=== PATIENT | male | born 1950 | race Caucasian/White ===

== ENCOUNTER 2017-02-24 23:13 | Emergency (ER) | payer OTHER ==
[2017-02-24 23:20] VITALS: RESP 16
[2017-02-24] MEDS ORDERED: HYDROCODONE/APAP 5/325 TAB PO ONE (23:53)
--- NOTE | 2017-02-25 00:12 | EDPHY ---
H & P Time Seen by Provider: 02/24/17 23:52 HPI/ROS: CHIEF COMPLAINT: Right knee pain HISTORY OF PRESENT ILLNESS: 66-year-old male complaining of acute right posterior knee pain which started this evening when he was stepping over his dog on the stairs, rotated and felt immediate pain in the posterior aspect of his right knee. He is able to bear partial weight only albeit with pain. No direct trauma or fall. No proximal pain or injury. PHYSICAL EXAM (Prior to examination, patient consented to physical exam, hands were washed and my usual and customary physical exam procedures followed) 1) GENERAL: Well-developed, well-nourished, alert and oriented. Appears to be in no acute distress. 2) HEAD: Normocephalic 3) HEENT: Pupils equal, round, reactive to light bilaterally. 4) LUNGS: Breathing comfortably. 5) MUSCULOSKELETAL: Exam of the right knee shows normal coloration, normal temperature. He is keeping the knee extended approximately 120 degrees. Extension and flexion beyond this elicits pain in the posterior aspect of the knee. . Compartments are soft. 6) SKIN: Intact normal coloration 7) VASCULAR: DP,PT pulses and cap refill present and brisk distally DIFFERENTIAL DIAGNOSIS: in no particular order including but not limited to fracture, sprain, compartment syndrome, septic arthritis, DVT Procedure: Crutches indications for crutch use discussed with patient. Patient fitted for crutches by ER staff. Observed ambulating with crutches. I think the patient has the capacity to safely use crutches. Usual and customary crutch walking precautions provided Procedure: Splint A knee immobilizer splint was applied by ER is technician. After application of the splint I returned and re-examined the patient. The splint was adequately immobilizing the joint and distal to the splint the patient's circulation and sensation were intact. Patient shows no signs of compartment syndrome. Was given orthopedic precautions. MEDICAL DECISION MAKING Serial evaluations performed on patient. I discussed the limitations of x-ray in diagnosis of knee pain and injury. At this time I do not think that emergent MRI is currently indicated. However, I have recommended follow-up with Orthopedic surgery and provided this referral information. Informed the patient that outpatient MRI may be indicated. Doubt septic arthritis. Doubt compartment syndrome. Doubt DVT. Care of patient under supervision of secondary supervising physician Dr Grewal. Smoking Status: Never smoked Constitutional: Initial Vital Signs Temperature (C) 36.6 C 02/24/17 23:16 Heart Rate 65 02/24/17 23:16 Respiratory Rate 16 02/24/17 23:16 Blood Pressure 150/89 H 02/24/17 23:16 O2 Sat (%) 94 02/24/17 23:16 O2 Delivery Mode Room Air Allergies/Adverse Reactions: No Known Allergies Allergy (Unverified 02/24/17 23:20) Home Medications: Medication Instructions Recorded NK [No Known Home Meds] 02/24/17 MDM/Departure - MDM Medications Given: Discontinued Medications Hydrocodone Bitart/Acetaminophen ([place] 5/325) 1 tab PO EDNOW ONE Stop: 02/24/17 23:54 Last Admin: 02/25/17 00:05 Dose: 1 tab - Depart Disposition: Home, Routine, Self-Care Clinical Impression: Right knee pain Qualifiers: Chronicity: acute Qualified Code(s): M25.561 - Pain in right knee Condition: Good Instructions: Knee Sprain (ED), Hydrocodone/Acetaminophen (By mouth) Additional Instructions: Return to the ER immediately if you experience discoloration, have worsening pain, numbness, tingling, or any other symptoms that concern you. If you received x-rays in the emergency department today, be advised, that ligamentous , tendon, muscular, and other non-bony injury cannot be fully ruled out. Try to keep your affected extremity elevated above the level of your chest, and keep cold packs on the affected area, for the next 48 hours. Referrals: Tariq Weaver MD [Medical Doctor] - 1-2 days without fail
[2017-02-25] MEDS ORDERED: HYDROCOD/APAP 5/325 PREPACK#6 BTL TAKEHOME ONE (00:25)
[2017-02-25 00:42] VITALS: BP 144/86; PULSE 64; TEMP 98.2; O2SAT 92
== END 2017-02-25 00:40 | disposition home or self-care (01) ==
DX: M25.561 Pain in right knee (principal)
CPT/HCPCS: L1830